=== PATIENT | male | born 1990 | race African-American/Black ===

== ENCOUNTER 2021-10-21 06:18 | Emergency (ER) | payer MEDICAID ==
[~2021-10-21] VITALS: Ht 172.7 cm; Wt 106.4 kg
[2021-10-21] MEDS ORDERED: SODIUM CHLORIDE 0.9% 1,000 ML IV ONE (06:30)
[2021-10-21] MEDS ORDERED: ONDANSETRON HCL 4MG/2ML INJ IV STA (06:30)
[2021-10-21] MEDS ORDERED: MORPHINE SULFATE 4 MG/ML CPJ (NOT FOR IM USE) IV STA (06:30)
[2021-10-21 07:18] LABS: CHLORIDE 108 mEq/L (98-107)
[2021-10-21 07:20] LABS: BASOPHILS % 0.2 % (0.0-2.0); EOSINOPHILS % 0.7 % (0.0-5.0); HEMOGLOBIN. 15.4 g/dL (14.0-18.0); LYMPHOCYTES % 18.3 % (20.0-50.0); MEAN CORPUSCULAR HEMOGLOBIN 27.9 pg (28.0-32.0); MEAN CORPUSCULAR VOLUME 85.1 fL (80.0-94.0); MEAN PLATELET VOLUME 8.4 fl (7.4-10.4); MONOCYTES % 5.7 % (2.0-8.0); NEUTROPHILS % 75.1 % (40.0-76.0); PLATELET 219 x1000/uL (130-400); RED BLOOD CELL COUNT 5.52 mill/uL (4.7-6.1)
[2021-10-21 07:22] LABS: PROTHROMBIN TIME 11.2 sec (9.6-11.0)
[2021-10-21 08:40] LABS: CLARITY URINE CLEAR (CLEAR); COLOR URINE YELLOW (YELLOW); KETONES URINE NEGATIVE (NEGATIVE); LEUKOCYTE ESTERASE URINE NEGATIVE (NEGATIVE); NITRITE URINE NEGATIVE (NEGATIVE); OCCULT BLOOD URINE 2+ (NEGATIVE); PH URINE 7.5 (4.5-8.0); PROTEIN URINE NEGATIVE (NEGATIVE); SPECIFIC GRAVITY URINE 1.014 (1.005-1.030)
[2021-10-21] MEDS ORDERED: KETOROLAC 30MG/ML VIAL IV ONE (09:15)
[2021-10-21] MEDS ORDERED: IOHEXOL-300 100 ML BOTTLE ONE (10:07)
[2021-10-21] MEDS ORDERED: HYDROCODONE/ACETAMINOPHEN 5/325MG TABLET PO ONE (10:15)
[2021-10-21] MEDS ORDERED: HYDR-4001 MT (10:17)
[2021-10-21] MEDS ORDERED: TAMS-11 MT (10:17)
[2021-10-21] MEDS ORDERED: IBUP-2028 MT (10:17)
[2021-10-21 10:29] VITALS: BP 170/100
== END 2021-10-21 10:33 | disposition home or self-care (01) ==
LOC: ER 06:33
DX: N23 Unspecified renal colic (principal); N17.8 Other acute kidney failure; J45.909 Unspecified asthma, uncomplicated; Z98.890 Other specified postprocedural states
CPT/HCPCS: 36415; 74177; 80053; 81003; 83690; 85025; 85610; 96361; 96374; 96375; 99285; J1885; J2270; J2405; J7030; Q9967

== ENCOUNTER 2023-09-22 13:01 | Emergency (ER) | payer MEDICAID ==
[~2023-09-22] VITALS: Ht 167.6 cm; Wt 99.0 kg
[~2023-09-22 13:01] MED LIST: HYDR-4001 MT; IBUP-2028 MT; TAMS-11 MT
[2023-09-22 13:11] VITALS: O2SAT 99
[2023-09-22 13:42] LABS: BASOPHILS % 0.4 % (0.0-2.0); EOSINOPHILS % 0.8 % (0.0-5.0); HEMATOCRIT. 49.9 % (42.0-52.0); LYMPHOCYTES % 21.5 % (20.0-50.0); MEAN CORPUSCULAR HEMOGLOBIN 28.6 pg (28.0-32.0); MEAN CORPUSCULAR HGB CONC 34.1 g/dL (31.0-37.0); MEAN CORPUSCULAR VOLUME 84.1 fL (80.0-94.0); MEAN PLATELET VOLUME 8.2 fl (7.4-10.4); MONOCYTES % 10.5 % (2.0-8.0); NEUTROPHILS % 66.8 % (40.0-76.0); PLATELET 218 x1000/uL (130-400); RED BLOOD CELL COUNT 5.93 mill/uL (4.7-6.1); RED CELL DISTRIBUTION WIDTH 14.3 % (11.6-14.6); WHITE BLOOD COUNT 9.3 x1000/uL (4.5-11.0)
[2023-09-22 13:48] LABS: CHLORIDE 107 mEq/L (98-107); POTASSIUM 3.7 mEq/L (3.5-5.1); SODIUM 140 mEq/L (136-145)
[2023-09-22 13:49] LABS: CARBON DIOXIDE 25 mEq/L (21-32)
[2023-09-22 13:50] LABS: CALCIUM 9.8 mg/dL (8.7-10.4)
[2023-09-22] MEDS: PREDNISONE 20MG TABLET PO STA (13:53)
[2023-09-22 13:54] LABS: CREATININE 1.4 mg/dL (0.6-1.3); GLUCOSE 104 mg/dL (70-105)
[2023-09-22 13:55] LABS: TROPONIN I HIGH SENSITIVITY 4 ng/L (3.0-53); UREA NITROGEN BLOOD 9 mg/dL (9-23)
[2023-09-22 14:06] VITALS: PULSE 82; RESP 20
[2023-09-22] MEDS: IPRATROPIUM BROMIDE (0.02%) 0.5MG/2.5ML NEB HHN STA (14:06)
[2023-09-22] MEDS: ALBUTEROL (0.083%) 2.5MG/3ML NEB HHN STA (14:06)
[2023-09-22] MEDS ORDERED: P50 MT (15:15)
[2023-09-22 15:26] VITALS: BP 136/59; PULSE 79; RESP 18; TEMP 98.5
== END 2023-09-22 17:21 | disposition home or self-care (01) ==
LOC: ER 13:01
DX: J45.901 Unspecified asthma with (acute) exacerbation (principal); I10 Essential (primary) hypertension; Z98.890 Other specified postprocedural states; Z88.8 Allergy status to other drugs, medicaments and biological substances
CPT/HCPCS: 80048; 85025; 84484; 36415; 71045; 94640; 93005; 99285; J7512; Z7610 ×3

== ENCOUNTER 2024-04-14 20:19 | Emergency (ER) | payer MEDICAID ==
[~2024-04-14] VITALS: Ht 175.3 cm; Wt 114.0 kg
[~2024-04-14 20:19] MED LIST changes: +P50 MT
[2024-04-15] MEDS: IBUPROFEN 600MG TABLET PO ONE (00:46)
[2024-04-15] MEDS: PREDNISONE 20MG TABLET PO STA (00:47)
[2024-04-15] MEDS: OXYCODONE HCL/ACETAMINOPHEN 5/325MG TABLET PO ONE (00:47)
[2024-04-15] MEDS: IPRATROPIUM BROMIDE (0.02%) 0.5MG/2.5ML NEB HHN STA (01:00)
[2024-04-15] MEDS: ALBUTEROL (0.083%) 2.5MG/3ML NEB HHN STA (01:00)
[2024-04-15 01:01] VITALS: PULSE 80; RESP 22; O2SAT 93
[2024-04-15] MEDS ORDERED: TAM75 MT (01:45)
[2024-04-15] MEDS ORDERED: ALBU18HF2 IH (01:45)
[2024-04-15] MEDS ORDERED: P50 MT (01:45)
[2024-04-15] MEDS ORDERED: TRAM50TA3 MT (01:46)
[2024-04-15] MEDS ORDERED: ALBU2.5V13 NEB (01:47)
[2024-04-15 02:00] VITALS: BP 138/90; PULSE 77; RESP 20; TEMP 37.2; O2SAT 96
== END 2024-04-15 01:59 | disposition home or self-care (01) ==
LOC: ER 20:19
DX: J45.901 Unspecified asthma with (acute) exacerbation (principal); J11.1 Influenza due to unidentified influenza virus with other respiratory manifestations; M54.40 Lumbago with sciatica, unspecified side; I10 Essential (primary) hypertension; Z89.511 Acquired absence of right leg below knee; Z98.890 Other specified postprocedural states
CPT/HCPCS: 71045; 93005; 99284; 94640; J7512; Z7610 ×3